=== PATIENT | female | born 1970 | race Caucasian/White ===

== ENCOUNTER → 2022-02-01 06:53 | Outpatient (CLI) | payer OTHER, SELFPAY ==
--- NOTE | ~2022-02-01 | MM_ITS ---
EXAMINATION: MM screening kenzie BI w tim HISTORY: Screening mammogram TECHNIQUE: Craniocaudal and mediolateral oblique 3-D tomosynthesis images were obtained and synthetic 2-D images were generated. CAD analysis was submitted and interpreted. COMPARISON: 01/16/2019, 03/09/2016 bilateral screening mammogram examinations BREAST PARENCHYMAL COMPOSITION: There are scattered areas of fibroglandular density. FINDINGS: There is no evidence of suspicious mass, calcification, or architectural distortion to sugg est malignancy in either breast. There has been no suspicious interval change. IMPRESSION: 1. No mammographic evidence of malignancy. 2. Recommend routine screening mammography in one year. BI-RADS Category 1: Negative Reviewed, dictated and finalized at location A.
== END ==
PROVIDERS: PCP Family Medicine Adolescent Medicine; Visit Provider Family Medicine Adolescent Medicine
DX: Z12.31 Encounter for screening mammogram for malignant neoplasm of breast (principal)
CPT/HCPCS: 77063; 77067

== ENCOUNTER → 2022-02-01 11:23 | Outpatient (CLI) | payer OTHER, SELFPAY ==
--- NOTE | ~2022-02-01 | US_ITS ---
EXAMINATION: US abdomen complete EXAM DATE: 02/01/2022 11:53 INDICATION: R10.13 - Epigastric pain. TECHNIQUE: Multiple grayscale and Doppler images of the complete abdomen were obtained (by a technolo gist who performed the scan) and subsequently reviewed. There is no prior study for comparison. FINDINGS: The abdominal aorta is normal in caliber. Visualized portion IVC is patent. The pancreatic head a nd body are normal in appearance. The pancreatic tail is not visualized. The liver has normal echogenicity and contour. There are no focal liver lesions identified. There is no evidence of intrahepatic biliary duct dilation. Portal venous flow was seen in the hepatopedal , normal direction and has normal Doppler waveform. Common bile duct measures 3 mm, which is normal. The gallbladder wall is normal in thickness, with ex pected amount of distention. No sonographic evidence of pericholecystic fluid. There is no cholelit hiases. Technologist performing exam reports patient did not demonstrate sonographic Greene's sign. Please note that this sign is less reliable in patients who have received pain medication. Right kidney: There is normal contour and echogenicity. It measures 9.9 x 3.7 x 4.7 centimeters. T here are no focal renal lesions identified. There is no hydronephrosis. Left kidney: There is normal contour and echogenicity. It measures 9.5 x 4.2 x 4.7 centimeters. Th ere are no focal renal lesions identified. There is no hydronephrosis. The spleen measures 9 centimeters and is morphologically normal. IMPRESSION: 1. Unremarkable complete abdominal ultrasound exam. Reviewed, dictated and finalized at location G.
== END ==
PROVIDERS: PCP Family Medicine Adolescent Medicine; Visit Provider Physician Assistant
DX: R10.13 Epigastric pain (principal)
CPT/HCPCS: 76700

== ENCOUNTER 2023-03-08 14:23 | Outpatient (CLI) | payer BC, SELFPAY ==
--- NOTE | ~2023-03-08 | MR_ITS ---
MRI of the right shoulder Technique: Axial proton-density fat-sat images, coronal proton density fat-sat and T2 fat-sat images, and sagittal T1-weighted and T2 fat-sat images were acquired. Clinical History: Pain Findings: There is [id number] AC joint degenerative change with minimal subacromial spur. Corac oclavicular, coracoacromial, and coracohumeral ligaments are intact. There is a 0.8 x 1.0 cm full-thickness tear at the anterior, distal supraspinatus tendon insertion. I nfraspinatus tendon is intact, without partial or full-thickness tear. Subscapularis tendon is intact , with mild tendinosis. Tendon of long head of the biceps is intact. No labral tear identified. Inferior glenohumeral ligament is intact. There are small glenohumeral joint effusion, with small may unt of fluid passing through the rotator cuff defect into the subacromial/subdeltoid bursa. No muscle atrophy or edema. No degenerative change of the glenohumeral joint. Impression: 0.8 x 1.0 cm full-thickness tear at the anterior, distal supraspinatus tendon insertion. Reviewed, dictated and finalized at location . Impression: 0.8 x 1.0 cm full-thickness tear at the anterior, distal supraspinatus tendon i nsertion.
== END 2023-03-08 14:24 | disposition home or self-care (01) ==
PROVIDERS: PCP Family Medicine Adolescent Medicine; Visit Provider Orthopaedic Surgery
DX: M75.121 Complete rotator cuff tear or rupture of right shoulder, not specified as traumatic (principal); X58.XXXA Exposure to other specified factors, initial encounter
CPT/HCPCS: 73221

== ENCOUNTER 2023-04-18 01:34 | Day surgery (SDC) | payer BC, SELFPAY ==
[2023-04-13 14:52] VITALS: BMI 27.6
--- NOTE | 2023-04-13 14:57 | PC.NURSE ---
Report to the Outpatient Waiting Room, entrance under the green pavilion located off [facility], at time 1100 on date 04/18/23. Planned Procedure Time: 1300. Time changes happen often and if your time is changed the preop area will call you the afternoon before. - You and your visitor will be asked to self-screen and do not enter if you have any COVID symptoms. - A mask is optional within the hospital at this time. Patients may have clear liquids (water, carbonated beverages, clear teas, apple juice) until 3 hours prior to surgery with a maximum of 20 ounces. - No food from midnight until time of surgery Take the following medications with a SIP of water the morning of surgery: NONE DO NOT STOP ANY OF YOUR OTHER PRESCRIPTION MEDICATIONS PRIOR TO SURGERY?EXCEPT THE FOLLOWING Medications to discontinue per physician: N/A Date to take last dose: N/A Please no make-up, nail upper sorbian, hairspray, perfume, deodorant, or body powder the day of surgery. No jewelry (including any body piercings) or valuables the day of surgery, leave them at home. Please take a shower or bath the night before, or the morning of, surgery with an antibacterial soap. Wear comfortable, loose fitting clothing. - Jewelry must be removed prior to entering the operating room. Rings and piercings that are not removed may be cut off. - The hospital will not accept responsibility for valuables. - Please leave all valuables, including medications, at home the day of surgery. If you are going home after surgery, a licensed tour bus driver/guide must drive you home. - NO public transportation without another adult if you receive anesthesia. - We recommend that an adult stay with you for 24 hours following discharge. - We also recommend that you do not drive, make important decision, drink alcoholic beverages, or take any drugs that were not prescribed by your health care provider for at least 24 hours after your discharge time. Follow any additional instructions given to you from your surgeon. If you or anyone in your household have experienced Covid symptoms in the past week, please notify your surgeon or the nurse liaison at the phone number below for possible testing. Telephone instructions given to PT - RUTH BURRIS and asked if any additional questions and then verbalized understanding. Patient advised to call surgeon office or pre surgery nurse liaison [phone] if any additional questions.
[2023-04-18] VITALS (8 sets, daily range): BP systolic 123–159; BP diastolic 87–101; PULSE 65–79; RESP 14–20; TEMP 36.2–37; O2SAT 95–100
[2023-04-18] MEDS: ACETAMINOPHEN 500 MG TABLET 1000 MG PO (11:14)
[2023-04-18] MEDS: LACTATED RINGERS 1,000 ML 30 ML IV CONT ×2 (11:35→14:33)
[2023-04-18] MEDS: KETOROLAC 15 MG/ML VIAL (*BKC) IV PUSH (11:36)
--- NOTE | 2023-04-18 12:00 | P.PNAN_ITS ---
Anes - Initial Pre Proc Eval Procedure: Operation Date: 04/18/23 13:00 Proposed Procedures p Arthroscopic Right Rotator Cuff Repair, Proceed as Indicated - Andrew Jha MD Date/Time: 04/18/23 12:00 Surgeon: Andrew Jha MD Pre Op Diagnosis: Rt Complete Rot Cuff Tear Patient Data Age: 52 Gender: F Height: 1.6 m Weight: 71 kg Last Vital Signs Temp 37.0 C 04/18/23 10:47 Pulse 79 04/18/23 10:47 Resp 20 04/18/23 10:47 BP 123/87 04/18/23 10:47 Pulse Ox 100 04/18/23 10:47 O2 Del Method Room Air 04/18/23 10:47 Allergies Allergy/AdvReac Type Severity Reaction Status Date / Time Penicillins Allergy Mild Hives / Verified 04/18/23 10:43 Red Face Home Medications Medication Instructions Recorded Confirmed Type zolpidem 10 mg tablet 10 mg PO QHS PRN insomnia #30 tabs 12/12/22 04/18/23 Rx lorazepam 2 mg tablet 2 mg PO QHS #30 tabs 02/15/23 04/18/23 Rx medroxyprogesterone 10 mg tablet 10 mg PO HS 04/13/23 04/18/23 History Patient hx anesthesia problems: none Family hx anesthesia problems: none Results Review: All pre-operative results and documents have been reviewed as part of the pre- operative evaluation. [facility] Past Medical History Medical History Insomnia Family History Family History Father Acute myocardial infarction Heart disease Mother Breast cancer Depression Pancreatic cancer Other Colon polyp Social History Social History Smoking status: Current every day smoker Tobacco type: e-cigarettes/vaping Second hand tobacco smoke exposure: No Alcohol intake: current Drinks per week: 5 Substance use: current Substance use type: marijuana Lack of Transportation: No Lack of Food: Never True Current Housing: I Have Housing Concerned About Future Housing: No Difficulty Paying Gas/Electric Bills: No Difficulty Paying for Meds: No Currently Unemployed: No Education: High School Diploma/GED Difficulty w/ Childcare or Family Care: No Living arrangements: with family Occupation/Education: occupation Gender identity (if verbalized by the patient): Female Sexual Orientation (if Verbalized by the Patient): Straight or Heterosexual Spiritual care concerns: No Agree to blood products: Yes Anes - Eval Final PreProcedure Day of Procedure 04/18/23 12:00 Patient weight: overweight Heart: regular rate and rhythm Lungs: clear to auscultation Airway: Mallampati scale class II Neurological: alert and oriented Last oral intake: >/= 8 hours ASA classification: III Emergent: no Anesthetic plan: proceed Anesthesia type and monitoring: general ETT and standard monitoring Results Review: All pre-operative results and documents have been reviewed as part of the pre- operative evaluation. Informed Consent: The patient's anesthetic plan and its attendant risks and benefits were discussed with the patient/family/POA. Questions were solicited and answers provided to the satisfaction of the patient/family/POA.
--- NOTE | 2023-04-18 12:26 | WPDANESPNB ---
Anes - Peripheral Nerve Block Date/Time: 04/18/23 12:26 I have discussed with the patient/family/POA the placement of a peripheral nerve block for post-operative pain management, including associated risks, benefits, complications, and side effects. Alternative methods of post-operative analgesia were detailed. Questions were solicited and answers provided to the satisfaction of the patient/family/POA. Time-Out: A pre-procedural Time-Out was completed immediately before starting the procedure and confirmed: Patient Identification, Site, Procedure, Patient Position and the Availability of Requisite Equipment. Clinical Indications: Acute post-operative pain management requested by the operative surgeon. Nerve Block Insertion Note Anes-nerve block: interscalene right Patient position: other (sitting) Skin prep: chlorhexidine Needle: 22 gauge, stimulating, insulated echogenic needle. Needle length: 50 mm Technique: nerve stimulation lost at (mA) (0.3) and ultrasound Injectate: bupivacaine 0.5% with epi 5 mcg/ml (30ml no epi) and dexamethasone (mg) (4) Observations: tolerated well Complications: none Procedure end time:: 1220
[2023-04-18] MEDS: ceFAZolin 2 GM/D5W 50 ML 2 GM/50 ML BAG IVPB (12:28)
--- NOTE | 2023-04-18 12:29 | WPDANESPNB ---
Anes - Peripheral Nerve Block Date/Time: 04/18/23 12:29 I have discussed with the patient/family/POA the placement of a peripheral nerve block for post-operative pain management, including associated risks, benefits, complications, and side effects. Alternative methods of post-operative analgesia were detailed. Questions were solicited and answers provided to the satisfaction of the patient/family/POA. Time-Out: A pre-procedural Time-Out was completed immediately before starting the procedure and confirmed: Patient Identification, Site, Procedure, Patient Position and the Availability of Requisite Equipment. Clinical Indications: Acute post-operative pain management requested by the operative surgeon. Nerve Block Insertion Note Anes-nerve block: interscalene right Patient position: other (sitting) Skin prep: chlorhexidine Needle: 22 gauge, stimulating, insulated echogenic needle. Needle length: 50 mm Technique: nerve stimulation lost at (mA) (0.3) and ultrasound Injectate: bupivacaine 0.5% with epi 5 mcg/ml (30ml no epi) and dexamethasone (mg) (4) Observations: tolerated well Complications: none Procedure start time:: 1213 Procedure end time:: 1220
--- NOTE | 2023-04-18 12:35 | WPDHPUPDATE1 ---
History and Physical Update Update Date/Time: 04/18/23 12:35 History and Physical has been reviewed, including an updated exam of the patient. There are NO changes in the patient's condition. Risks, benefits, and alternatives have been discussed and questions answered. Patient agrees to proceed with procedure.
--- NOTE | 2023-04-18 15:14 | W.PM.PROC2 ---
Procedure Note - Detailed Date of Procedure 04/18/23 Pre-op Diagnosis Right shoulder full-thickness rotator cuff tear. Post-op Diagnosis Same Procedure Performed Right shoulder 1. Arthroscopic rotator cuff repair 2. Arthroscopic subacromial decompression Surgeon Andrew Jha MD Anesthesia General and Regional ( interscalene block) Findings Full-thickness tear of the supraspinatus. Mild retraction. Reasonably good tissue quality. Anatomic repair with 4 anchors double row construct. Modest acromioplasty with evidence of external impingement. Description of Procedure Preoperative antibiotics were given. An interscalene block was administered in the preoperative area. The patient was bought brought to the operating room. A general anesthetic was administered. The patient was carefully positioned in the beach chair position. The head and neck were carefully positioned. The non operative extremity was also carefully positioned. The shoulder was prepped and draped in the usual sterile fashion. Examination was performed. Standard posterior and anterior arthroscopic portals were established. Inflow achieved with the arthroscopic pump using saline and epinephrine. The glenohumeral joint was carefully inspected. There was no arthritis. The labrum was largely intact. The subscapularis appeared fairly normal. Significant tear of the supraspinatus was identified.. Attention was turned to the subacromial space. A complete bursectomy was performed. The rotator cuff and footprint were lightly debrided. A modest acromioplasty was performed. The tear configuration was carefully assessed. Two medial row All suture anchors were placed. Each anchor included a tape suture that was tied to itself after passing posterior and anterior. A 3rd swaged suture was placed more medial which was split and then brought to each of the lateral anchors for a double row construct. The arthroscopic instruments were removed. The wounds were closed with 3-0 Monocryl subcuticular suture and steri strips. There were no complications. A sling was applied and the patient brought to the recovery room. Implants Arthrex suture anchors, all suture anchor x2, SwiveLock anchor x2. Estimated Blood Loss 5 Urine Output 400 Pathology None sent Complications No immediate complications Condition Stable Disposition PACU [facility] Billing Surgery - Charge Forward: Surgery Billing
--- NOTE | 2023-04-18 16:13 | SUR.PHASEII ---
9654 DR. DOWNING NOTIFIED RE: PATIENT SLIGHTLY ELEVATED BP'S AND OKAY'D FOR HER TO GO HOME WITHOUT INTERVENTIONS.
== END 2023-04-18 16:36 | disposition home or self-care (01) ==
PROVIDERS: PCP Family Medicine Adolescent Medicine; Visit Provider Orthopaedic Surgery
PROC: (CPT 29805; principal; 2023-04-18 13:00)
DX: S46.011A Strain of muscle(s) and tendon(s) of the rotator cuff of right shoulder, initial encounter (principal); G89.18 Other acute postprocedural pain; W10.9XXA Fall (on) (from) unspecified stairs and steps, initial encounter; G47.00 Insomnia, unspecified; F17.290 Nicotine dependence, other tobacco product, uncomplicated; F12.90 Cannabis use, unspecified, uncomplicated
CPT/HCPCS: 29827; 29826; 64415; A4565; A9270; C1713; J0171; J0690; J1100; J1170; J1885; J2250; J2405; J2704; J2710; J3010; J7120

== ENCOUNTER 2025-10-28 01:39 | Day surgery (SDC) | payer BC, SELFPAY ==
[2025-10-02 15:11] VITALS: BMI 26.6
--- OUTSIDE RECORDS SUMMARY | 2025-10-28 01:42 | XMS_ITS | Clinical Summary ---
Author Organization [facility] Address [facility] [place] [address] Care Team Providers Care Steel Sash Erector Name Role Phone None, Provider MD Primary Care Provider Unavaila ble Allergies Active Allergy Reactions Criticality Noted Date Comments Penicillins Unknown 11/14/2022 Medications ondansetron (ZOFRAN-ODT) 4 MG disintegrating tablet Take 1 tablet (4 mg total) by mouth every 8 (eight) hours as needed. 15 tablet Active Social History Tobacco Use Types Packs/Day Years Used Date Smoking Tobacco: Never Smokeless Tobacco: Never Tobacco Cessation:Counseling Given: Not Answered Alcohol Use Standard Drinks/Week Comments Yes 0 (1 standard drink = 0.6 oz pur e alcohol) 5x week Comments Unknown Sex and Gender Information Value Date Recorded Sex Assigned at Not on file Legal Sex Female 7:28 PM CDT Gender Identity Not on file Sexual Orientation Not on file Last Filed Vital Signs Vital Sign Reading Time Taken Comments Blood Pressure 125/73 11/14/2022 2:03 PM BEDSPREAD CUTTER Pulse 106 11/14/2022 2:03 PM BEDSPREAD CUTTER Temperature 37.7 C (99.8 F) 11/14/2022 2:03 PM BEDSPREAD CUTTER Respiratory Rate 18 11/14/2022 2:03 PM BEDSPREAD CUTTER Oxygen Saturation 99% 11/14/2022 2:03 PM BEDSPREAD CUTTER Inhaled Oxygen Concentration - - Weight 68.3 kg (150 lb 9.2 oz) 11/14/2022 2:03 P M BEDSPREAD CUTTER Height 160 cm (5' 3) 11/14/2022 2:03 PM BEDSPREAD CUTTER Body Mass Index 26.67 11/14/2022 2:03 PM BEDSPREAD CUTTER Plan of Treatment Health Maintenance Due Date Last Done Comments Cervical Cancer Screening Pap Smear (Age 30 to 64) Every 3 Years 1969 Colorectal Cancer Screening Colonoscopy (10 Years) 1969 Annual Physical 1972 Hepatitis C 1987 DTaP, Tdap and Td Vaccines (1 - Tdap) 1988 Hepatitis B Vaccines (1 of 3 - 19+ 3-dose series) 1988 Cervical Cancer Screening Pap with HPV Testing (Age 30 to 64) Every 5 Years 1999 Cervical Cancer Screening with HPV 1999 Mammogram Screening 2009 Pneumococcal Vaccine: 50+ Years (1 of 1 - PCV) 2019 Zoster Vaccines (2 of 2) 12/10/2022 10/15/2022 COVID-19 Vaccine ( - season) 2025 09/03/2022, 09/08/2021, 01/18/2021 Influenza Adult (#1) 2025 09/03/2022, 08/14/2021, 08/11/2020, Additional history exists Hepatitis A Vaccines Aged Out No long er eligible based on patient's age to complete this topic Meningococcal B Vaccine Aged Out No l onger eligible based on patient's age to complete this topic Meningococcal Vaccine Aged Out No kristen doreen eligible based on patient's age to complete this topic RSV Immunizations Under 20 Months Aged Out No longer eligible based on patient's age to complete this topic Insurance Care Teams Steel Sash Erector Relationship Specialty Start Date End Date None, Provider, MD PCP - General UNKNOWN PHYSICIAN SPECIALTY 11/14/22
--- OUTSIDE RECORDS SUMMARY | 2025-10-28 01:42 | XMS_ITS | Clinical Summary ---
Author Organization [facility][1] lin Address [address] [place] [address] Care Team Providers Care Insurance Specialist Name Role Phone No, Pcp DOOR FRAMER Primary Care Provider Unavailabl e Medications No known medications Social History Tobacco Use Types Packs/Day Years Used Date Smoking Tobacco: Never Assessed Comments Unknown Sex and Gender Information Value Date Recorded Sex Assigned at Not on file Legal Sex Female 8:09 AM EDT Gender Identity Not on file Sexual Orientation Not on file Plan of Treatment Not on file Medical Devices Not on file Care Teams Insurance Specialist Relationship Specialty Start Date End Date No, Pcp, DOOR FRAMER N/A Do not use PCP - General Family Medicine 08/21/20
[2025-10-28 08:36] VITALS: BP 125/84; PULSE 64; RESP 18; TEMP 36.3; O2SAT 100
[2025-10-28] MEDS: LACTATED RINGERS 1,000 ML 150 ML IV CONT (08:46)
[2025-10-28 09:01] LABS: BEDSIDEPREGUCG Negative (Negative)
--- NOTE | 2025-10-28 10:04 | P.PNAN_ITS ---
Anes - Initial Pre Proc Eval Procedure: Operation Date: 10/28/25 09:30 Proposed Procedures p Screening Colonoscopy - Robert Barros MD Date/Time: 10/28/25 10:04 Surgeon: Robert Barros MD Pre Op Diagnosis: Family Hx of malignant neoplasm of digestive organ Patient Data Age: 55 Gender: F Height: 1.6 m Weight: 68.9 kg Last Vital Signs Temp 97.3 F L 10/28/25 08:36 Pulse 64 10/28/25 08:36 Resp 18 10/28/25 08:36 BP 125/84 10/28/25 08:36 Pulse Ox 100 10/28/25 08:36 O2 Del Method Room Air 10/28/25 08:36 Allergies Allergy/AdvReac Type Severity Reaction Status Date / Time Penicillins Allergy Mild Hives / Verified 10/02/25 15:10 Red Face Home Medications ?Medication ?Instructions ?Recorded ?Confirmed ?Type zolpidem 12.5 mg tablet,extended 12.5 mg PO QHS PRN in somnia #30 10/07/25 Rx release,multiphase tabs Laboratory Tests 10/28/25 08:36 POC Urine HCG, Qual Negative (Negative) Patient hx anesthesia problems: none Family hx anesthesia problems: none Results Review: All pre-operative results and documents have been reviewed as part of the pre- operative evaluation. [facility] Past Medical History Medical History Family history of colon cancer in mother (~2005) Insomnia Surgical History Surgical History [place] teeth removed History of hysteroscopy (~1987) suction D&C missed AB H/O colonoscopy (~2021) History of repair of rotator cuff (04/18/23) Right Family History Family History Father Acute myocardial infarction Heart disease Kidney failure, acute Mother Breast cancer Depression Pancreatic cancer Other Colon polyp Social History Social History Smoking status: Current every day smoker Tobacco type: e-cigarettes/vaping Second hand tobacco smoke exposure: No Alcohol intake: current Drinks per week: 5 Substance use: current Substance use type: marijuana Lack of Transportation: No Lack of Food: Never True Current Housing: I Have Housing Concerned About Future Housing: No Difficulty Paying Gas/Electric Bills: No Difficulty Paying for Meds: No Currently Unemployed: No Education: High School Diploma/GED Difficulty w/ Childcare or Family Care: No Living arrangements: with family Occupation/Education: occupation Additional occupation/education comments: [employer] 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 Gender identity (if verbalized by the patient): Female Sexual Orientation (if Verbalized by the Patient): Straight or Heterosexual Spiritual care concerns: No Agree to blood products: Yes Anes - Eval Final PreProcedure Day of Procedure 10/28/25 10:04 Patient weight: overweight Lungs: normal air movement Airway: Mallampati scale class II Neurological: alert and oriented Last oral intake: >/= 8 hours ASA classification: II Emergent: no Anesthetic plan: proceed Anesthesia type and monitoring: general GIVS and standard monitoring Results Review: All pre-operative results and documents have been reviewed as part of the pre- operative evaluation. Vapes daily, did vape this am. Informed Consent: The patient's anesthetic plan and its attendant risks and benefits were discussed with the patient/family/POA. Questions were solicited and answers provided to the satisfaction of the patient/family/POA.
--- NOTE | 2025-10-28 10:16 | PM.IMHP2 ---
H&P: HPI History of Present Illness Date/Time: 10/28/25 10:16 Chief Complaint: Family history of colon cancer Narrative: This patient has family history of colorectal cancer. Her mother had colon cancer at age 70. Her last colonoscopy was 3 years ago. Apparently there were polyps. Review of Systems Review of Systems: All systems reviewed & are unremarkable except as noted in HPI and below PMFSH Past Medical History Medical History Family history of colon cancer in mother (~2005) Insomnia Surgical History Surgical History [place] teeth removed History of hysteroscopy (~1987) suction D&C missed AB H/O colonoscopy (~2021) History of repair of rotator cuff (04/18/23) Right Family History Family History Father Acute myocardial infarction Heart disease Kidney failure, acute Mother Breast cancer Depression Pancreatic cancer Other Colon polyp Social History Social History Smoking status: Current every day smoker Tobacco type: e-cigarettes/vaping Second hand tobacco smoke exposure: No Alcohol intake: current Drinks per week: 5 Substance use: current Substance use type: marijuana Lack of Transportation: No Lack of Food: Never True Current Housing: I Have Housing Concerned About Future Housing: No Difficulty Paying Gas/Electric Bills: No Difficulty Paying for Meds: No Currently Unemployed: No Education: High School Diploma/GED Difficulty w/ Childcare or Family Care: No Living arrangements: with family Occupation/Education: occupation Additional occupation/education comments: 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 Gender identity (if verbalized by the patient): Female Sexual Orientation (if Verbalized by the Patient): Straight or Heterosexual Spiritual care concerns: No Agree to blood products: Yes Meds Home Medications and Allergies Home Medications ?Medication ?Instructions ?Recorded ?Confirmed ?Type zolpidem 12.5 mg tablet,extended 12.5 mg PO QHS PRN insomnia #30 10/07/25 Rx release,multiphase tabs Allergies Allergy/AdvReac Type Severity Reaction Status Date / Time Penicillins Allergy Mild Hives / Verified 10/02/25 15:10 Red Face Vital Signs Vital Signs - 24 hr 10/28/25 08:36 Temperature 97.3 F L Pulse Rate 64 Respiratory Rate 18 Blood Pressure 125/84 Pulse Oximetry 100 Oxygen Delivery Room Air Exam Const: General: cooperative and healthy appearing Resp: Effort & Inspection: normal respiratory effort and able to speak in complete sentences Auscultation: clear to auscultation bilaterally Cardio: Rate: regular rate Rhythm: regular rhythm GI: Inspection: normal to inspection GI Palp: No No hepatosplenomegaly present Auscultation: normal bowel sounds Rectal Exam: deferred Skin: General skin exam: normal color Psych: Appearance: grossly normal Mental Status: mental status grossly normal Assessment and Plan Assessment and plan (1) Family history of colon cancer in mother: Code(s): Z80.0 - Family history of malignant neoplasm of digestive organs Status: Acute Assessment and Plan: The patient is deemed a good candidate for the procedure. Consent signed. Will proceed. Prior Studies I have reviewed the following patient records and this information was taken into consideration when formulating the assessment and plan.: previous labs, previous ER visits, previous hospitalizations and previous clinic visits
[2025-10-28 10:40] VITALS: BP 122/83; PULSE 66; RESP 15; O2SAT 98
[2025-10-28 10:50] VITALS: BP 122/83; PULSE 66; RESP 16; O2SAT 100
[2025-10-28 11:00] VITALS: BP 121/84; PULSE 53; RESP 20; O2SAT 99
== END 2025-10-28 11:10 | disposition home or self-care (01) ==
PROVIDERS: Anesthesiology; PCP Family Medicine; Referring Provider Family Medicine; Visit Provider Internal Medicine Gastroenterology
PROC: 0DJD8ZZ Inspection of Lower Intestinal Tract, Via Natural or Artificial Opening Endoscopic (ICD-10-PCS; CPT 45378; principal; 2025-10-28 09:30)
DX: Z12.11 Encounter for screening for malignant neoplasm of colon (principal); K64.8 Other hemorrhoids; K57.30 Diverticulosis of large intestine without perforation or abscess without bleeding; G47.00 Insomnia, unspecified; F17.290 Nicotine dependence, other tobacco product, uncomplicated; F12.90 Cannabis use, unspecified, uncomplicated; Z98.890 Other specified postprocedural states; Z80.0 Family history of malignant neoplasm of digestive organs; Z80.3 Family history of malignant neoplasm of breast; Z83.719 Family history of colon polyps, unspecified; Z82.49 Family history of ischemic heart disease and other diseases of the circulatory system
CPT/HCPCS: 45378; J2003; J2704; J7120